=== PATIENT | male | born 1965 | race Caucasian/White ===

== ENCOUNTER 2022-09-19 13:17 | Emergency (ER) | payer OTHER ==
[2022-09-19 13:35] VITALS: TEMP 98.6; BMI 30.8
[2022-09-19] MEDS ORDERED: ACETAMINOPHEN 500 MG TABLET (FP) PO ONE (16:44)
[2022-09-19] MEDS ORDERED: KETOROLAC TROMETHAMINE 30 MG/1 ML VIAL IM ONE (16:44)
[2022-09-19] MEDS ORDERED: LIDOCAINE 5% TOPICAL PATCH TP ONE (16:44)
[2022-09-19] MEDS ORDERED: DEXAMETHASONE SOD PHOSPHATE 10 MG/1 ML VIAL IM ONE (16:49)
[2022-09-19] MEDS ORDERED: LIDOCAINE 5% TOPICAL PATCH ONE (16:52)
[2022-09-19] MEDS ORDERED: KETOROLAC TROMETHAMINE 30 MG/1 ML VIAL ONE (16:52)
[2022-09-19] MEDS ORDERED: ACETAMINOPHEN 325 MG TABLET (FP) ONE (16:52)
[2022-09-19] MEDS ORDERED: DEXAMETHASONE SOD PHOSPHATE 10 MG/1 ML VIAL ONE (17:03)
[2022-09-19 19:10] VITALS: BP 146/78; PULSE 78; RESP 19
[2022-09-19] MEDS ORDERED: LIDOCAINE PATCH REMOVAL MC SCH (22:00)
== END 2022-09-19 19:10 | disposition home or self-care (01) ==
LOC: JER 13:17
PROC: 3E0233Z Introduction of Anti-inflammatory into Muscle, Percutaneous Approach (ICD-10-PCS; principal; 2022-09-19)
PROC: 3E0233Z Introduction of Anti-inflammatory into Muscle, Percutaneous Approach (ICD-10-PCS; 2022-09-19)
DX: R20.2 Paresthesia of skin (principal); M25.512 Pain in left shoulder
CPT/HCPCS: 71046-TC-FY; 73030-TC-LT-FY; 93005; 93010; 99285-25; J1100